=== PATIENT | female | born 1985 | race Caucasian/White ===

== ENCOUNTER → 2020-02-28 11:56 | Outpatient (CLI) | payer BC, SELFPAY ==
--- NOTE | 2020-02-28 12:14 | XR_ITS ---
PROCEDURE: XR CHEST PORTABLE CLINICAL HISTORY: COVID OUTPATIENT TESTING Shortness of breath, cough COMPARISON: No exams were available for comparison FINDINGS: The cardiomediastinal silhouette and pulmonary vascularity are within normal limits. Nodular opacity is present over the both lower lung zone at the 6th rib and may represent a nipple shadows. Calcified granulomas present in the right midlung. No acute bony abnormalities. IMPRESSION: No acute findings. Dictated by: Rigo Trivedi MD 02/28/2020 14:55 Rigo Trivedi MD in [facility] 02/28/2020 14:55
== END ==
PROVIDERS: PCP Internal Medicine Adolescent Medicine; Visit Provider Internal Medicine Adolescent Medicine
DX: Z20.828 Contact with and (suspected) exposure to other viral communicable diseases (principal); U07.1 COVID-19; R05 Cough
CPT/HCPCS: 71045; U0003